=== PATIENT | female | born 1970 | race Asian ===

== ENCOUNTER 2023-09-22 14:53 | Emergency (ER) | payer OTHER ==
[~2023-09-22] VITALS: Ht 154.9 cm; Wt 62.1 kg
[2023-09-22 16:05] LABS: BASOPHILS % (AUTO) 0.8 % (0.0-2.0); EOSINOPHILS # (AUTO) 0.1 K/uL (0.0-0.7); EOSINOPHILS % (AUTO) 3.6 % (0.0-7.0); HEMATOCRIT 39.9 % (31.2-41.9); HEMOGLOBIN 13.4 g/dL (10.9-14.3); LYMPHOCYTES # (AUTO) 1.3 K/uL (0.8-4.8); LYMPHOCYTES % (AUTO) 33.3 % (20.5-51.5); MEAN CORPUSCULAR HEMOGLOBIN 32.1 uug (24.7-32.8); MEAN CORPUSCULAR HGB CONC 34 g/dL (32.3-35.6); MEAN CORPUSCULAR VOLUME 95.7 fL (75.5-95.3); MONOCYTES # (AUTO) 0.3 K/uL (0.1-1.30); MONOCYTES % (AUTO) 7.6 % (0.0-11.0); NEUTROPHILS # (AUTO) 2.1 K/uL (1.8-8.9); NEUTROPHILS % (AUTO) 54.7 % (38.5-71.5); PLATELET COUNT (AUTO) 246 K/uL (179-408); RED BLOOD CELL COUNT(AUTO) 4.17 MIL/uL (3.63-4.92); RED CELL DISTRIBUTION WIDTH 13.2 % (12.3-17.7); WHITE BLOOD COUNT (AUTO) 3.8 K/uL (3.8-11.8)
[2023-09-22 16:06] LABS: DIFFERENTIAL COMMENT 1
[2023-09-22 16:13] LABS: CREATININE 0.7 mg/dL (0.6-1.3); POTASSIUM 3.6 mmol/L (3.5-5.1)
[2023-09-22 16:19] LABS: CALCIUM 8.6 mg/dL (8.5-10.1)
[2023-09-22] MEDS ORDERED: MECL-159 PO (16:44)
[2023-09-22] MEDS ORDERED: METO-543 PO (16:44)
[2023-09-22] MEDS ORDERED: ACETAMINOPHEN ES 500 MG TABLET ONE (17:09)
[2023-09-22] MEDS: ACETAMINOPHEN ES 500 MG TABLET PO ONE (17:11)
[2023-09-22 17:18] VITALS: BP 111/72; O2SAT 97
== END 2023-09-22 17:21 | disposition home or self-care (01) ==
LOC: ER 14:53
DX: H81.312 Aural vertigo, left ear (principal); Z79.899 Other long term (current) drug therapy
CPT/HCPCS: 36415; 71045; 85025; 93005; A4606; A4663; A9150